=== PATIENT | female | born 1945 | race Caucasian/White ===

== ENCOUNTER → 2016-06-30 | Outpatient (CLI) | payer OTHER ==
--- NOTE | 2016-06-30 18:07 | MA ---
Screening Digital Mammogram With iCAD Indication: Routine screening. Technique: Standard cephalocaudal and mediolateral oblique projections were obtained. This examinat ion was processed by the iCAD computer-aided detection system. Comparison: May 2015, May 2014, May 2013, and April 2012. Breast density: Type B. Findings: CAD was reviewed. No suspicious microcalcifications, mass, or architectural distortion. Impression: Negative mammogram BI-RADS 1: Negative Recommendation: Routine screening is recommended in one year. [facility] will send a result letter to the patient. Negative mammography should not preclude additional workup of a clinically suspicious finding. The patient's information is entered into a reminder system with a target due date for her next mammo gram.
== END ==
LOC: FIMAGING 12:23
DX: Z12.31 Encounter for screening mammogram for malignant neoplasm of breast (principal)
CPT/HCPCS: G0202

== ENCOUNTER → 2016-07-07 | Outpatient (CLI) | payer OTHER ==
--- NOTE | 2016-07-08 08:39 | DX ---
DEXA Bone Mineral Densitometry Clinical Indications: Osteoporosis screening in a postmenopausal female . Comparison: No previous studies are available for comparison at this time. Technique: Bone Mineral Densitometry (BMD) by Dual Energy X-Ray Absorptiometry (DEXA) was performed utilizing the [employer] scanner. The lumbar spine was evaluated in the AP projection. The erick ateral hips and left forearm were evaluated in the AP projection. Vertebral fracture assessment was also performed. AP Lumbar Spine: The L1, L2 vertebral bodies were evaluated; L3 and L4 omitted because of sclerosis . BMD: 0.775 gm/cm2 T-score: -3.3 SD Z-score: -1.4 SD AP Left Hip: Femoral neck. BMD: 0.697 gm/cm2 T-score: -2.4 SD Z-score: -0.6 SD AP Right Hip: Femoral neck. BMD: 0.714 gm/cm2 T-score: -2.3 SD Z-score: -0.5 SD AP Left Forearm, 05/27: BMD: 0.643 gm/cm2 T-score: -2.7 SD Z-score: -0.7 SD Vertebral Fracture Assessment: No significant fracture deformity. Conclusion: Considering the lowest measured site, the patient's bone density is low; osteoporotic (T score < -2.5). The ten year risk for any major osteoporotic fracture is 14.4 % and for a hip fracture is 4.0 %. Any bone loss in this patient is probably related to aging or estrogen deficiency. Recommendations: 1.Consider excluding secondary metabolic causes of bone loss. 2. If secondary causes are excluded, then consider initiating treatment with a bisphosphonate (such as Fosamax, Actonel or Boniva). If the patient is unable to use an oral bisphosphonate, another agen t such as IV bisphosphonates (Boniva or Reclast), teriparatide (Forteo), or a selective estrogen rec eptor modulator (Evista) might be considered. 3. Optimize daily calcium intake. Also, a daily dose 800 International Units of vitamin D should be considered. 4. Osteoporosis prevention and treatment begins by modifying risk factors. The patient should be enc ouraged to participate in a regular exercise program that includes weightbearing and muscle strength ening regimens, as is clinically appropriate. 5. Recommend follow-up DEXA in one year.
== END ==
LOC: FIMAGING 08:37
PROVIDERS: ATTEND Internal Medicine
DX: Z13.820 Encounter for screening for osteoporosis (principal); M85.80 Other specified disorders of bone density and structure, unspecified site; Z78.0 Asymptomatic menopausal state

== ENCOUNTER → 2017-07-02 | Outpatient (CLI) | payer OTHER | LOC: FIMAGING 08:01 | PROVIDERS: ATTEND Internal Medicine | DX: Z12.31 Encounter for screening mammogram for malignant neoplasm of breast (principal) ==

== ENCOUNTER → 2018-07-15 | Outpatient (CLI) | payer OTHER | LOC: FIMAGING 07:28 | PROVIDERS: ATTEND Internal Medicine | DX: Z12.31 Encounter for screening mammogram for malignant neoplasm of breast (principal) ==